=== PATIENT | female | born 1990 | race Caucasian/White ===

== ENCOUNTER 2019-05-21 04:57 | Emergency (ER) | payer SELFPAY ==
[~2019-05-21] VITALS: Ht 165.1 cm; Wt 52.0 kg
[2019-05-21 05:36] VITALS: BP 134/85
== END 2019-05-21 06:15 | disposition left against medical advice (07) ==
LOC: ER 04:57
DX: Z53.21 Procedure and treatment not carried out due to patient leaving prior to being seen by health care provider (principal)